=== PATIENT | female | born 1985 | race Caucasian/White ===

== ENCOUNTER → 2024-04-20 14:07 | Outpatient (REF) | payer OTHER, SELFPAY ==
[2024-04-20 15:47] LABS: Amphetamines Negative (Negative); Barbiturates Negative (Negative); Benzodiazepines Negative (Negative); Buprenorphine Negative (Negative); Cocaine Negative (Negative); Marijuana Negative (Negative); Methadone Negative (Negative); Methamphetamines Negative (Negative); Opiates Negative (Negative); Phencyclidine Negative (Negative); Tricyclic Antidepressants Negative (Negative)
[2024-04-22 14:31] LABS: Alcohol, Urine Screen/Quant Negative mg/dL (Cutoff 40)
== END ==
LOC: REG 14:07
PROVIDERS: ATTENDING PHYSICIAN Family Medicine
DX: Z00.00 Encounter for general adult medical examination without abnormal findings (principal)
CPT/HCPCS: 71046; 80306; 80307